=== PATIENT | female | born 2000 | race Hispanic/Latino ===

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

== ENCOUNTER 2022-11-18 04:39 | Emergency (ER) | payer SELFPAY ==
[2022-11-18] MEDS ORDERED: Lidocaine 1% w/Epinephrine 1:100K 20 ML VIAL ONE (04:58)
[2022-11-18] MEDS ORDERED: Boostrix 0.5 ML (Tdap) VIAL (>/=7 yrs of age) ONE (05:02)
== END 2022-11-18 05:32 | disposition home or self-care (01) ==
LOC: ERS 04:39
DX: L05.01 Pilonidal cyst with abscess (principal)
CPT/HCPCS: 10080; 87070; 87205; 90471; 90715

== ENCOUNTER 2022-11-21 11:31 | Emergency (ER) | payer SELFPAY | END 2022-11-21 13:27 | disposition home or self-care (01) | LOC: ERS 11:31 | DX: Z48.00 Encounter for change or removal of nonsurgical wound dressing (principal) | CPT/HCPCS: 99282 ==

== ENCOUNTER 2023-08-12 19:01 | Emergency (ER) | payer OTHER | END 2023-08-12 20:30 | LOC: ERS 19:01 | DX: O99.891 Other specified diseases and conditions complicating pregnancy (principal); R10.2 Pelvic and perineal pain; Z3A.36 36 weeks gestation of pregnancy | CPT/HCPCS: 99283 ==